=== PATIENT | female | born 1955 | race Caucasian/White ===

== ENCOUNTER 2018-10-04 00:50 | Inpatient (IN) | payer OTHER ==
[2018-10-04] MEDS ORDERED: SODIUM CHLORIDE 1,000 ML IV STA (01:13)
[2018-10-04] MEDS ORDERED: FAMOTIDINE 20 MG/50 ML IVPB 20 MG/50 ML MG IVPB ONE ×2 (01:13→03:24)
[2018-10-04] MEDS ORDERED: ONDANSETRON 4 MG/2 ML VIAL IVPUSH ONE (01:13)
--- NOTE | 2018-10-04 01:13 | PDOC ---
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 She states that she was outside in the heat today and feels like she might be dehydrated. She was feeling too nauseous earlier today that she was not able to take her standard seizure and psychiatric medications. She did not take her lithium or her lamictal. Despite feeling nauseous she has been drinking a ton of water per her and has been urinating non-stop with very clear urine. Patient denies having any chest pain, SOB, difficulty breathing, recent fevers, chills, infections, headache, abdominal pain, back pain, blurry vision, neck pain, weakness, numbness, tingling or chills. PCP: Ben De Leon PSH: Brain surgery Allergies: Carbamazepine, gabapentin, risperidone Social Hx: Patient denies smoking, drinking, or other substance usage. Past History - Past Medical History Allergies/Adverse Reactions: Allergies Allergy/AdvReac Type Severity Reaction Status Date / Time carbamazepine [From Tegretol] AdvReac Verified 10/04/18 01:13 gabapentin AdvReac Verified 10/04/18 01:12 risperidone [From Risperdal] AdvReac Verified 10/04/18 01:12 Home Medications: Ambulatory Orders Atorvastatin Calcium 20 mg PO DAILY 10/04/18 Clonazepam 0.5 mg PO TID 10/04/18 Clonazepam 1 mg PO DAILY 10/04/18 Labetalol HCl 100 mg PO DAILY 10/04/18 Lamotrigine 200 mg PO HS 10/04/18 [place] Carbonate [Eskalith -] 450 mg PO HS 10/04/18 Quetiapine Fumarate [Seroquel -] 25 mg PO HS 10/04/18 - Suicide/Smoking/Psychosocial Hx Smoking History: Unknown if ever smoked Review of Systems - Review of Systems Able to Perform ROS?: Yes Comments:: CONSTITUTIONAL: Absent: fever, no chills, no fatigue EYES: Absent: visual changes ENT: Absent: ear pain, no sore throat CARDIOVASCULAR: Absent: chest pain, no palpitations RESPIRATORY: Absent: cough, no SOB GI: Present: Nausea Absent: abdominal pain, no vomiting, no constipation, no diarrhea GENITOURINARY: Present: Polyuria Absent: dysuria, no frequency, no hematuria MUSKULOSKELETAL: Absent: back pain, no arthralgia, no myalgia SKIN: Absent: rash NEURO: Absent: headache *Physical Exam - Vital Signs Last Vital Signs Temp Pulse Resp BP Pulse Ox 18 L 17 175/86 H 97 10/04/18 01:09 10/04/18 01:09 10/04/18 01:09 10/04/18 01:09 - Physical Exam Comments: GENERAL: Well-appearing, well-nourished. No apparent distress. HEENT: Normocephalic, atraumatic. PERRL, EOM intact. CARDIOVASCULAR: Normal S1, S2. Regular rate and rhythm. PULMONARY: No evidence of respiratory distress. Lungs clear to auscultation bilaterally. No wheezing, rales or rhonchi. ABDOMEN: Soft, non-distended, non-tender. EXTREMITIES: Normal ROM in all four extremities. No gross deformities. SKIN: Warm, dry. No rash NEUROLOGICAL: No focal neurological deficits. PSYCHIATRIC: Cooperative. Good eye contact. Appropriate mood and affect. 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 She states that she was outside in the heat today and feels like she might be dehydrated. She was feeling too nauseous earlier today that she was not able to take her standard seizure and psychiatric medications. She did not take her lithium or her lamictal. Despite feeling nauseous she has been drinking a ton of water per her and has been urinating non-stop with very clear urine. Vital Signs Temp Pulse Resp BP Pulse Ox 18 L 17 175/86 H 97 10/04/18 01:09 10/04/18 01:09 10/04/18 01:09 10/04/18 01:09 DDx IBNLT: Psychogenic polydipsia, Viral gastroenteritis, electrolyte/metabolic disturbance, dehydration, Arrhythmia, UTI/Pylo Plan: Labs, Urine, EKG, IV hydration, analgesia, GI cocktail, re-assess. Labs: Mild leukocytosis w left shift, hyponatremia 128, elevated BUN 21.2 suggesting possible dehydration. Urine: Low specific gravity EKG: NS rate of 66, narrow complexes, normal axis, no hypertrophy, no ST elevations or depressions, TWI in lead 3, Q waves in lead 3 and aVF, NE - 198, QTc - 438 Re-assessment: Patient does not feel comfortable going home bc she has no AC. She still feels nauseous and requests to be admitted to the hospital bc she does not feel well Disposition: Admit to hospital for hyponatremia, elevated BUN, psychogenic polydipsia *DC/Admit/Observation/Transfer Diagnosis at time of Disposition: Neutrophilic leukocytosis, Hyponatremia, Elevated BUN, Nausea, Psychogenic polydipsia - Discharge Dispostion Condition at time of disposition: Stable Decision to Admit order: Yes - Referrals - Patient Instructions - Post Discharge Activity
[2018-10-04] MEDS ORDERED: ACETAMINOPHEN 325 MG TABLET (FP) PO ONE (01:15)
[2018-10-04] MEDS ORDERED: MAG HYDROX/AL HYDROX/SIMETH -MYLANTA- ORAL SUSPENSION PO ONE (01:15)
[2018-10-04] MEDS ORDERED: MAG HYDROX/AL HYDROX/SIMETH 30 ML UNIT-DOSE CUP ONE (01:21)
[2018-10-04] MEDS ORDERED: ACETAMINOPHEN 325 MG TABLET (FP) ONE (01:21)
[2018-10-04] MEDS ORDERED: ONDANSETRON 4 MG/2 ML VIAL ONE (01:21)
[2018-10-04 01:38] LABS: BASO % 0.5 % (0-2.0); EOS % 3.4 % (0-4.5); HEMATOCRIT 40.7 % (32.4-45.2); HEMOGLOBIN 14.5 GM/dL (10.7-15.3); LYMPH % 10.8 % (8-40); MCHC 35.6 g/dl (32.0-36.0); MEAN CELL VOLUME 89.9 fl (80-96); MEAN PLT VOLUME 8.3 fl (7.5-11.1); MONO % 5.6 % (3.8-10.2); NEUT % 79.7 % (42.8-82.8); PLATELET COUNT 178 K/MM3 (134-434); RBC 4.52 M/mm3 (3.60-5.2); RDW 12.4 % (11.6-15.6); WHITE BLOOD COUNT 10.4 K/mm3 (4.0-10.0)
[2018-10-04 01:48] LABS: PH,URINE 6.5 (5.0-8.0); URINE APPEARANCE CLEAR; URINE BILIRUBIN NEGATIVE (NEGATIVE); URINE COLOR YELLOW; URINE GLUCOSE (UA) NEGATIVE (NEGATIVE); URINE KETONE NEGATIVE (NEGATIVE); URINE LEUK ESTERASE NEGATIVE (NEGATIVE); URINE NITRITE NEGATIVE (NEGATIVE); URINE PROTEIN NEGATIVE (NEGATIVE); URINE UROBILINOGEN 0.2 mg/dL (0.2-1.0)
[2018-10-04 01:50] LABS: INR 1.02 (0.83-1.09)
[2018-10-04 01:53] LABS: MAGNESIUM 1.9 mg/dL (1.8-2.4)
--- NOTE | 2018-10-04 01:53 | PDOC ---
Attending Attestation - Resident Resident Name: Tk Montano - ED Attending Attestation I have performed the following: I have examined & evaluated the patient, The case was reviewed & discussed with the resident, I agree w/resident's findings & plan - HPI HPI: 10/04/18 03:07 Pt was sleeping/snoozing, then suddenly got up and told her that she needs to go to the ER because she "feels unwell" she is unable to specify what. Pt and tell us that they have no AC in the home, which may be causing unrest. Pt has no other complaints. She states that she has stress familial and due to her left knee injury 1 mos ago. She has postnasal drip due to allergies and states that she has belching due to allergies and stress. Pt is requesting xanax 1/2 pill for anxiety. She states that she is nauseous. States that she drinks a lot of water to stay cool. - Physicial Exam PE: 10/04/18 03:10 Agree with resident exam. Pt has a normal exam. Pt has fullness in her bilateral neck and collarbone area, that her tells me is normal for her. - Medical Decision Making 10/04/18 03:11 Pt has significant hyponatremia. She seems to be normovolemic. 10/04/18 05:05 Repeat Chem shows that the Na+ went from 128 to 130 and she is still hyponatremic. She will be admitted for hydration. She still feels unwell. She will be treated with antiemetics and more saline. She was signed out to the hospitalist team.
[2018-10-04 02:00] LABS: ALBUMIN 4.2 g/dl (3.4-5.0); BILIRUBIN,TOTAL 0.7 mg/dL (0.2-1); BLOOD UREA NITROGEN 21.2 mg/dL (7-18); CALCIUM 9.5 mg/dL (8.5-10.1); CREATININE 1.1 mg/dL (0.55-1.3); POTASSIUM 3.6 mmol/L (3.5-5.1); TOT PROT 6.7 g/dl (6.4-8.2)
[2018-10-04] MEDS ORDERED: LORazepam 1 MG TABLET PO ONE (03:05)
[2018-10-04] MEDS ORDERED: LORazepam 0.5 MG TABLET ONE (03:24)
[2018-10-04 04:10] LABS: BLOOD UREA NITROGEN 20.3 mg/dL (7-18); CALCIUM 8.5 mg/dL (8.5-10.1); POTASSIUM 3.6 mmol/L (3.5-5.1)
[2018-10-04] MEDS ORDERED: METOCLOPRAMIDE HCL INJECTION 10 MG/2 ML VIAL IVPUSH ONE (04:30)
[2018-10-04] MEDS ORDERED: METOCLOPRAMIDE HCL INJECTION 10 MG/2 ML VIAL ONE (04:32)
--- NOTE | 2018-10-04 05:06 | PN ---
Teaching Attending Note Name of Resident: Sarthak Dumont ATTENDING PHYSICIAN STATEMENT I saw and evaluated the patient. I reviewed the resident's note and discussed the case with the resident. I agree with the resident's findings and plan as documented. 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 She states that she was outside in the heat today and feels like she might be dehydrated. She was feeling too nauseous earlier today that she was not able to take her standard seizure and psychiatric medications. She did not take her lithium or her lamictal. Despite feeling nauseous she has been drinking a ton of water ( over 8 bottles) per her and has been urinating non-stop with very clear urine. Patient and also stated that they have no Air conditioner in the home and were also hot inside the house. Patient denies having any chest pain, SOB, difficulty breathing, recent fevers, chills, infections, headache, abdominal pain, back pain, blurry vision, neck pain, weakness, numbness, tingling or chills. OBJECTIVE: Alert Vital Signs Period Temp Pulse Resp BP Sys/Gonzalez Pulse Ox Last 24 Hr 18-70 17-18 128-175/71-86 97-100 HEENT: No Jaundice, eye redness or discharge, PERRLA, EOMI. Normocephalic, atraumatic. External ears are normal and hearing is grossly intact. No nasal discharge. Neck: Supple, nontender. No palpable adenopathy or thyromegaly. No JVD Chest: Good effort. Clear to auscultation and percussion. Heart: Regular. No S3, rub or murmur Abdomen: Not distended, soft, mild epigastric tenderness and no HSM. No rebound or guarding. Normal bowel sounds. Ext: Peripheral pulses intact. No leg edema. Skin: Warm and dry. No petechiae, rash or ecchymosis. Neuro: Alert. Oriented x3. Anxious. CN 2-12 grossly intact. Sensation grossly intact in all four extremities and DTR are symmetric. Psych: Appropriate mood and affect. Good insight. Home Medications Medication Instructions Recorded Atorvastatin Calcium 20 mg PO DAILY 10/04/18 Clonazepam 0.5 mg PO TID 10/04/18 Clonazepam 1 mg PO DAILY 10/04/18 Labetalol HCl 100 mg PO DAILY 10/04/18 Lamotrigine 200 mg PO HS 10/04/18 [place] Carbonate [Eskalith -] 450 mg PO HS 10/04/18 Quetiapine Fumarate [Seroquel -] 25 mg PO HS 10/04/18 Abnormal Lab Results 10/04/18 10/04/18 10/04/18 01:27 01:27 01:27 WBC 10.4 H Absolute Neuts (auto) 8.3 H Sodium 128 L Chloride 95 L Anion Gap 7 L BUN 21.2 H Ur Specific [place] 1.003 L Carbamazepine 10/04/18 10/04/18 01:27 03:15 WBC Absolute Neuts (auto) Sodium 130 L Chloride Anion Gap BUN 20.3 H Ur Specific [place] Carbamazepine < 0.5 L ASSESSMENT AND PLAN: 1. Heat stroke/Hyponatremia - Heat stroke may have led to the persistent nausea and excessive free water intake over a short period of time led to hyponatremia - likely exacerbated in the setting of lithium-induced sodium depletion. She got I liter IV NS in the ER and serum sodium is now 130 meq/L. Will restrict free water intake and withhold further IV fluids for now, pending repeat serum sodium level in 4 hours. Get upper abdominal sonogram and continue IV zofran PRN for nausea. Consult nephrology. EKG is NSR with no significant ST-T wave changes. 2. DVT prophylaxis - Lovenox 40 mg SQ q 24 hours. 3. Advance directives - Full code
[2018-10-04] MEDS ORDERED: ONDANSETRON 4 MG/2 ML VIAL IVPUSH PRN (05:17)
--- NOTE | 2018-10-04 05:29 | HP ---
CHIEF COMPLAINT: nausea PCP:Ben De Leon HISTORY OF PRESENT ILLNESS: Patient is a 63 y/o female with a psych history, CVA, and Brain AVM who presented for nausea. This began today. patient also was very hot today and drank around 7 water bottles which is more then she usually drinks. She did not eat anything out of the abnormality. Her does not have similar symptoms. Because of the nausea she missed her recent lamictal and lithium medications. Patient has not vomitted recently, denies any diarrhea. States she is not feeling better. Patient denies headache, chest pain, shortness of breath , or dizziness. Patient follows with a neurologist for her hx of Brain AVM and had recent MRI/MRA and was told there is a small aneurysm still but they are just watching it. ER course was notable for: (1) zofran, metoclopramide, famotidine, [place], NS (2) (3) Recent Travel: PAST MEDICAL HISTORY: psych, CVA, brain AVM PAST SURGICAL HISTORY: brain surgery ( 5 years ago) Social History: Smoking: denies Alcohol: glass of wine a day Drugs: denies Family History: Allergies carbamazepine [From Tegretol] Adverse Reaction (Verified 10/04/18 01:13) gabapentin Adverse Reaction (Verified 10/04/18 01:12) risperidone [From Risperdal] Adverse Reaction (Verified 10/04/18 01:12) HOME MEDICATIONS: Home Medications Medication Instructions Recorded Atorvastatin Calcium 20 mg PO DAILY 10/04/18 Clonazepam 0.5 mg PO TID 10/04/18 Clonazepam 1 mg PO DAILY 10/04/18 Labetalol HCl 100 mg PO DAILY 10/04/18 Lamotrigine 200 mg PO HS 10/04/18 [place] Carbonate [Eskalith -] 450 mg PO HS 10/04/18 Quetiapine Fumarate [Seroquel -] 25 mg PO HS 10/04/18 REVIEW OF SYSTEMS CONSTITUTIONAL: Absent: fever, chills, diaphoresis, generalized weakness, malaise, loss of appetite, weight change HEENT: Absent: rhinorrhea, nasal congestion, throat pain, throat swelling, difficulty swallowing, mouth swelling, ear pain, eye pain, visual changes CARDIOVASCULAR: Absent: chest pain, syncope, palpitations, irregular heart rate, lightheadedness , peripheral edema RESPIRATORY: Absent: cough, shortness of breath, dyspnea with exertion, orthopnea, wheezing, stridor, hemoptysis GASTROINTESTINAL:nausea, Absent: abdominal pain, abdominal distension, vomiting, diarrhea, constipation , melena, hematochezia GENITOURINARY: Absent: dysuria, frequency, urgency, hesitancy, hematuria, flank pain, genital pain MUSCULOSKELETAL: Absent: myalgia, arthralgia, joint swelling, back pain, neck pain SKIN: Absent: rash, itching, pallor HEMATOLOGIC/IMMUNOLOGIC: Absent: easy bleeding, easy bruising, lymphadenopathy, frequent infections ENDOCRINE: Absent: unexplained weight gain, unexplained weight loss, heat intolerance, cold intolerance NEUROLOGIC: Absent: headache, focal weakness or paresthesias, dizziness, unsteady gait, seizure, mental status changes, bladder or bowel incontinence PSYCHIATRIC: Absent: anxiety, depression, suicidal or homicidal ideation, hallucinations. PHYSICAL EXAMINATION Vital Signs - 24 hr 10/04/18 10/04/18 10/04/18 01:09 03:31 04:39 Pulse Rate 18 L Pulse Rate [ 70 62 Radial] Respiratory 17 18 Rate Blood Pressure 175/86 H Blood Pressure 142/83 128/71 [Right Arm] O2 Sat by Pulse 97 100 100 Oximetry (%) GENERAL: Awake, alert, and fully oriented, in no acute distress. HEAD: Normal with no signs of trauma. LUNGS: Breath sounds equal, clear to auscultation bilaterally. No wheezes, and no crackles. No accessory muscle use. HEART: Regular rate and rhythm, normal S1 and S2 without murmur, rub or gallop. ABDOMEN:mild mid epigastric tenderness, soft, non distended MUSCULOSKELETAL: Normal range of motion at all joints. No bony deformities or tenderness. LOWER EXTREMITIES: 2+ pulses, warm, well-perfused. No calf tenderness. No peripheral edema. NEUROLOGICAL: Normal speech. SKIN: Warm, dry, normal turgor, no rashes or lesions noted, normal capillary refill. CBC, BMP 10/04/18 01:27 10/04/18 03:15 ASSESSMENT/PLAN: Patient is a 63 y/o female with a psych history, CVA, and Brain AVM who is admitted for hyponatremia. #hyponatremia - 2/2 to pysocgenic polydipsia - NA improving on repeat CMP 128> 130 - fluid restriction of 1 L - continue to monitor, watch mental status - EKG: no st elevations or t wave abnormalities #nausea - 2/2 to hyponatremia, vs unknown cause - continue zofran 4 q6h - QTC 428 - monitor, continued vomiting could lead to worsening hyponatremia - Abd US ordered mid epigastric tenderness, CT abd in day time if indicated #brain AVM - follows with Dr. Axel Tang at [facility] - per patient recent MRI/MRA without any acute changes #HLD - continue atorvastatin 20 #psych hx - will continue home meds, lamotrigine, lithimum, queitiapine, clonazepam DVT ppx - Lovenox 40 sq FEN - low sodium diet Dispo: monitor on med surg, medications reconciled by ED nurse from husbands home list Visit type - Emergency Visit Emergency Visit: Yes ED Registration Date: 10/04/18 Care time: The patient presented to the Emergency Department on the above date and was hospitalized for further evaluation of their emergent condition. - New Patient This patient is new to me today: Yes Date on this admission: 10/04/18 - Critical Care Critical Care patient: No ATTENDING PHYSICIAN STATEMENT I saw and evaluated the patient. I reviewed the resident's note and discussed the case with the resident. I agree with the resident's findings and plan as documented. SUBJECTIVE: OBJECTIVE: ASSESSMENT AND PLAN:
[2018-10-04] MEDS ORDERED: PATIENT'S OWN MEDICATION (NON-FORMULARY) (Clonazepam [Clonazepam] 1 MG) PO SCH (10:00)
[2018-10-04] MEDS: LABETALOL HCL 100 MG TABLET (FP) PO SCH (10:25)
[2018-10-04] MEDS: ENOXAPARIN NA (PORCINE) 40 MG/0.4 ML DISP.SYRIN SQ SCH (10:25)
[2018-10-04] MEDS ORDERED: PATIENT'S OWN MEDICATION (NON-FORMULARY) (Clonazepam [Clonazepam] 0.5 MG) PO SCH (14:00)
[2018-10-04] MEDS ORDERED: LORATADINE 10 MG TABLET PO ONE (14:38)
[2018-10-04] MEDS: clonazePAM 0.5 MG TABLET PO SCH ×2 (14:40→23:03)
[2018-10-04] MEDS ORDERED: clonazePAM 0.5 MG TABLET ONE (14:40)
[2018-10-04] MEDS ORDERED: LORATADINE 10 MG TABLET ONE (14:41)
--- NOTE | 2018-10-04 14:54 | HOSP ---
Subjective - Review of Symptoms Events since last encounter: Patient is feeling better. patient is hyponatremic 128-->130 now, ordered urine osm. and urine sodium ordered. follow the labs. CMP , mag and phos. ordered home clonipin and lithium. Vital Signs Temperature Pulse Rate 67 10/04/18 08:37 Respiratory Rate 17 10/04/18 08:37 Blood Pressure 126/66 10/04/18 08:37 O2 Sat by Pulse Oximetry (%) 97 10/04/18 08:37 CBCD WBC 10.4 K/mm3 (4.0-10.0) H 10/04/18 01:27 RBC 4.52 M/mm3 (3.60-5.2) 10/04/18 01:27 Hgb 14.5 GM/dL (10.7-15.3) 10/04/18 01:27 Hct 40.7 % (32.4-45.2) 10/04/18 01:27 MCV 89.9 fl (80-96) 10/04/18 01:27 MCHC 35.6 g/dl (32.0-36.0) 10/04/18 01:27 RDW 12.4 % (11.6-15.6) 10/04/18 01:27 Plt Count 178 K/MM3 (134-434) 10/04/18 01:27 MPV 8.3 fl (7.5-11.1) 10/04/18 01:27 CMP Sodium 130 mmol/L (136-145) L 10/04/18 03:15 Potassium 3.6 mmol/L (3.5-5.1) 10/04/18 03:15 Chloride 99 mmol/L (98-107) 10/04/18 03:15 Carbon Dioxide 23 mmol/L (21-32) 10/04/18 03:15 Anion Gap 8 MMOL/L (8-16) 10/04/18 03:15 BUN 20.3 mg/dL (7-18) H 10/04/18 03:15 Creatinine 1.0 mg/dL (0.55-1.3) 10/04/18 03:15 Random Glucose 92 mg/dL (74-106) 10/04/18 03:15 Calcium 8.5 mg/dL (8.5-10.1) 10/04/18 03:15 Total Bilirubin 0.7 mg/dL (0.2-1) 10/04/18 01:27 AST 19 U/L (15-37) 10/04/18 01:27 ALT 23 U/L (13-61) 10/04/18 01:27 Alkaline Phosphatase 62 U/L (45-117) 10/04/18 01:27 Total Protein 6.7 g/dl (6.4-8.2) 10/04/18 01:27 Albumin 4.2 g/dl (3.4-5.0) 10/04/18 01:27 Current Medications Generic Name Dose Route Start Last Admin Trade Name Freq PRN Reason Stop Dose Admin Atorvastatin Calcium 20 mg 10/04/18 22:00 Lipitor - PO HS ANTONY Clonazepam 0.5 mg 10/04/18 14:31 Klonopin - PO TID ANTONY Clonazepam 1 mg 10/04/18 22:00 Klonopin - PO HS PRN AGITATION Enoxaparin Sodium 40 mg 10/04/18 10:00 10/04/18 10:25 Lovenox - SQ 40 mg DAILY ANTONY Administration Labetalol HCl 100 mg 10/04/18 10:00 10/04/18 10:25 Normodyne - PO 100 mg DAILY ANTONY Administration Lamotrigine 200 mg 10/04/18 22:00 Lamictal - PO HS [facility] [place] Carbonate 450 mg 10/04/18 22:00 Eskalith - PO HS [facility] Ondansetron HCl 4 mg 10/04/18 05:17 Zofran Injection IVPUSH Q6H PRN NAUSEA Quetiapine Fumarate 25 mg 10/04/18 22:00 Seroquel - PO HS [facility] Home Medications Medication Instructions Recorded Atorvastatin Calcium 20 mg PO DAILY 10/04/18 Clonazepam 0.5 mg PO TID 10/04/18 Clonazepam 1 mg PO DAILY 10/04/18 Labetalol HCl 100 mg PO DAILY 10/04/18 Lamotrigine 200 mg PO HS 10/04/18 [place] Carbonate [Eskalith -] 450 mg PO HS 10/04/18 Quetiapine Fumarate [Seroquel -] 25 mg PO HS 10/04/18 Physical Examination Vital Signs: Vital Signs Temperature Pulse Rate 67 10/04/18 08:37 Respiratory Rate 17 10/04/18 08:37 Blood Pressure 126/66 10/04/18 08:37 O2 Sat by Pulse Oximetry (%) 97 10/04/18 08:37 Labs: CBC, BMP 10/04/18 01:27 10/04/18 03:15
[2018-10-04 18:09] VITALS: BMI 26.2
[2018-10-04] MEDS ORDERED: PT OWN MED DRAWER 7, Y5N ONE (21:20)
[2018-10-04] MEDS ORDERED: clonazePAM 0.5 MG TABLET PO PRN (22:00)
[2018-10-04] MEDS ORDERED: QUEtiapine FUMARATE 25 MG TABLET (FP) PO SCH (22:00)
[2018-10-04] MEDS ORDERED: ATORVASTATIN CA 20 MG TABLET (FP) PO SCH (22:00)
[2018-10-04] MEDS ORDERED: LITHIUM CARBONATE 450 MG TABLET.ER PO SCH (22:00)
--- NOTE | 2018-10-05 00:02 | EKG ---
Test Reason : Blood Pressure : / mmHG Vent. Rate : 066 BPM Atrial Rate : 066 BPM P-R Int : 198 ms QRS Dur : 088 ms QT Int : 418 ms P-R-T Axes : 029 -24 035 degrees QTc Int : 438 ms NORMAL SINUS RHYTHM INFERIOR INFARCT , AGE UNDETERMINED ANTERIOR INFARCT , AGE UNDETERMINED ABNORMAL ECG NO PREVIOUS ECGS AVAILABLE Confirmed by DELTA TOLEDO MD ([id number]) on 10/05/2018 12:01:50 AM Referred By: JOLEEN Confirmed By:DELTA TOLEDO MD
[2018-10-05] MEDS: clonazePAM 0.5 MG TABLET PO SCH ×2 (06:24→14:50)
[2018-10-05 09:08] LABS: ALBUMIN 3.8 g/dl (3.4-5.0); BILIRUBIN,TOTAL 0.4 mg/dL (0.2-1); BLOOD UREA NITROGEN 16.8 mg/dL (7-18); CALCIUM 9.9 mg/dL (8.5-10.1); CREATININE 1.2 mg/dL (0.55-1.3); MAGNESIUM 2.8 mg/dL (1.8-2.4); PHOSPHOROUS 3.3 mg/dL (2.5-4.9); POTASSIUM 4.2 mmol/L (3.5-5.1)
[2018-10-05 09:26] LABS: BASO % 0.6 % (0-2.0); EOS % 3.4 % (0-4.5); HEMATOCRIT 37.5 % (32.4-45.2); HEMOGLOBIN 13.1 GM/dL (10.7-15.3); MCH 32.3 pg (25.7-33.7); MCHC 34.9 g/dl (32.0-36.0); MEAN CELL VOLUME 92.5 fl (80-96); MEAN PLT VOLUME 9.1 fl (7.5-11.1); MONO % 6.9 % (3.8-10.2); NEUT % 74.1 % (42.8-82.8); PLATELET COUNT 165 K/MM3 (134-434); RBC 4.05 M/mm3 (3.60-5.2); RDW 12.5 % (11.6-15.6); WHITE BLOOD COUNT 5.4 K/mm3 (4.0-10.0)
[2018-10-05] MEDS ORDERED: DEXTROSE 5%-WATER - 1,000 ML IV SCH (10:00)
[2018-10-05] MEDS: LABETALOL HCL 100 MG TABLET (FP) PO SCH (10:32)
[2018-10-05] MEDS: ENOXAPARIN NA (PORCINE) 40 MG/0.4 ML DISP.SYRIN SQ SCH (10:32)
--- NOTE | 2018-10-05 14:53 | PN ---
Teaching Attending Note Name of Resident: Emily Wu ATTENDING PHYSICIAN STATEMENT I saw and evaluated the patient. I reviewed the resident's note and discussed the case with the resident. I agree with the resident's findings and plan as documented. SUBJECTIVE: Patient is feeling better , at bed side. OBJECTIVE: Vital Signs Temperature 98.8 F 10/05/18 12:28 Pulse Rate 80 10/05/18 12:28 Respiratory Rate 18 10/05/18 12:28 Blood Pressure 152/83 10/05/18 12:28 O2 Sat by Pulse Oximetry (%) 96 10/05/18 09:00 GENERAL: The patient is awake, alert, and fully oriented, in no acute distress. HEAD: Normal with no signs of trauma. EYES: PERRL, extraocular movements intact, sclera anicteric, conjunctiva clear. ENT: Ears normal, oropharynx clear without exudates, moist mucous membranes. NECK: Trachea midline, full range of motion, supple. LUNGS: Breath sounds equal, clear to auscultation bilaterally, no wheezes, no crackles, no accessory muscle use. HEART: Regular rate and rhythm, S1, S2 without murmur, rub or gallop. ABDOMEN: Soft, nontender, nondistended, normoactive bowel sounds, no guarding, no rebound, no hepatosplenomegaly, no masses. EXTREMITIES: 2+ pulses, warm, well-perfused, no edema. NEUROLOGICAL: Cranial nerves II through XII grossly intact. Normal speech, gait not observed. PSYCH: Normal mood, normal affect. SKIN: Warm, dry, normal turgor, no rashes or lesions noted. CBCD WBC 5.4 K/mm3 (4.0-10.0) 10/05/18 07:51 RBC 4.05 M/mm3 (3.60-5.2) 10/05/18 07:51 Hgb 13.1 GM/dL (10.7-15.3) 10/05/18 07:51 Hct 37.5 % (32.4-45.2) 10/05/18 07:51 MCV 92.5 fl (80-96) 10/05/18 07:51 MCHC 34.9 g/dl (32.0-36.0) 10/05/18 07:51 RDW 12.5 % (11.6-15.6) 10/05/18 07:51 Plt Count 165 K/MM3 (134-434) 10/05/18 07:51 MPV 9.1 fl (7.5-11.1) 10/05/18 07:51 CMP Sodium 147 mmol/L (136-145) H 10/05/18 07:51 Potassium 4.2 mmol/L (3.5-5.1) 10/05/18 07:51 Chloride 118 mmol/L (98-107) H 10/05/18 07:51 Carbon Dioxide 24 mmol/L (21-32) 10/05/18 07:51 Anion Gap 5 MMOL/L (8-16) L 10/05/18 07:51 BUN 16.8 mg/dL (7-18) 10/05/18 07:51 Creatinine 1.2 mg/dL (0.55-1.3) 10/05/18 07:51 Random Glucose 130 mg/dL (74-106) H 10/05/18 07:51 Calcium 9.9 mg/dL (8.5-10.1) 10/05/18 07:51 Total Bilirubin 0.4 mg/dL (0.2-1) 10/05/18 07:51 AST 10 U/L (15-37) L 10/05/18 07:51 ALT 20 U/L (13-61) 10/05/18 07:51 Alkaline Phosphatase 52 U/L (45-117) 10/05/18 07:51 Total Protein 6.0 g/dl (6.4-8.2) L 10/05/18 07:51 Albumin 3.8 g/dl (3.4-5.0) 10/05/18 07:51 Home Medications Medication Instructions Recorded Atorvastatin Calcium 20 mg PO DAILY 10/04/18 Fluticasone Prop 0.05% Nasal 1 - 2 spray NS DAILY 10/04/18 [Flonase -] Loratadine [Allergy Relief] 10 mg PO PRN 10/04/18 Labetalol HCl [Normodyne -] 100 mg PO DAILY tablet 10/05/18 Lamotrigine [Lamictal -] 200 mg PO HS tablet 10/05/18 [place] Carbonate [Eskalith -] 450 mg PO HS tablet.er 10/05/18 Quetiapine Fumarate [Seroquel -] 25 mg PO HS tablet 10/05/18 clonazePAM [Klonopin -] 0.5 mg PO TID tablet MDD 2 10/05/18 clonazePAM [Klonopin -] 1 mg PO HS PRN tablet MDD 2 10/05/18 Current Medications Generic Name Dose Route Start Last Admin Trade Name Freq PRN Reason Stop Dose Admin Atorvastatin Calcium 20 mg 10/04/18 22:00 10/04/18 23:02 Lipitor - PO 20 mg HS ANTONY Administration Clonazepam 0.5 mg 10/04/18 14:31 10/05/18 14:50 Klonopin - PO 0.5 mg TID ANTONY Administration Clonazepam 1 mg 10/04/18 22:00 Klonopin - PO HS PRN AGITATION Enoxaparin Sodium 40 mg 10/04/18 10:00 10/05/18 10:32 Lovenox - SQ 40 mg DAILY ANTONY Administration Labetalol HCl 100 mg 10/04/18 10:00 10/05/18 10:32 Normodyne - PO 100 mg DAILY ANTONY Administration Lamotrigine 200 mg 10/04/18 22:00 10/04/18 23:22 Lamictal - PO 200 mg HS ANTONY Administration [place] Carbonate 450 mg 10/05/18 22:00 Eskalith - PO HS ANTONY Ondansetron HCl 4 mg 10/04/18 05:17 Zofran Injection IVPUSH Q6H PRN NAUSEA Quetiapine Fumarate 25 mg 10/04/18 22:00 10/04/18 23:02 Seroquel - PO 25 mg HS ANTONY Administration ASSESSMENT AND PLAN: Patient is a 63 y/o female with a psych history, CVA, and Brain AVM who is admitted for acute hyponatremia. #acute hyponatremia due to pysocgenic polydipsia, as per patient bc it is very heating engineer the house due to heat, patient was drinking lots of water, around 2 gallons as per patient. presneted with 128--> 147 today on fluid restriction. suggested to the patient to drink only 2 liters per day and follow up with the primary to repeat the level of her sodium closely . # Acute nausea improved #brain AVM: patient follows with Dr. Axel Tang at [facility]; per patient recent MRI/MRA without any acute changes #HLD continue atorvastatin 20 #psych hx : will continue home meds, lamotrigine, lithimum, queitiapine, clonazepam discharge patient home with her
--- NOTE | 2018-10-05 17:25 | DS ---
Physical Exam: SUBJECTIVE: Patient seen and examined. No acute events overnight. OBJECTIVE: Vital Signs Period Temp Pulse Resp BP Sys/Gonzalez Pulse Ox Last 24 Hr 98.0 F-98.8 F 71-80 18-18 134-152/65-83 96-98 PHYSICAL EXAM GENERAL: The patient is awake, alert, and fully oriented, in no acute distress. HEAD: Normal with no signs of trauma. EYES: PERRL, extraocular movements intact, sclera anicteric, conjunctiva clear. ENT: Ears normal, nares patent, oropharynx clear without exudates, moist mucous membranes. NECK: Trachea midline, full range of motion, supple. LUNGS: Breath sounds equal, clear to auscultation bilaterally, no wheezes, no crackles, no accessory muscle use. HEART: Regular rate and rhythm, S1, S2 without murmur, rub or gallop. ABDOMEN: Soft, nontender, nondistended, normoactive bowel sounds, no guarding, no rebound, no hepatosplenomegaly, no masses. EXTREMITIES: 2+ pulses, warm, well-perfused, no edema. NEUROLOGICAL: Cranial nerves II through XII grossly intact. Normal speech, gait not observed. PSYCH: Normal mood, normal affect. SKIN: Warm, dry, normal turgor, no rashes or lesions noted. LABS Laboratory Results - last 24 hr 10/04/18 10/05/18 10/05/18 03:15 07:51 07:51 WBC 5.4 RBC 4.05 Hgb 13.1 Hct 37.5 MCV 92.5 MCH 32.3 MCHC 34.9 RDW 12.5 Plt Count 165 MPV 9.1 Absolute Neuts (auto) 4.0 Neutrophils % 74.1 Lymphocytes % 15.0 D Monocytes % 6.9 Eosinophils % 3.4 Basophils % 0.6 Nucleated RBC % 0 Sodium 147 H Potassium 4.2 Chloride 118 H Carbon Dioxide 24 Anion Gap 5 L BUN 16.8 Creatinine 1.2 Est GFR (CKD-EPI)AfAm 54.92 Est GFR (CKD-EPI)NonAf 47.39 Random Glucose 130 H Serum Osmolality 305 Calcium 9.9 Phosphorus 3.3 Magnesium 2.8 H Total Bilirubin 0.4 AST 10 L ALT 20 Alkaline Phosphatase 52 Total Protein 6.0 L Albumin 3.8 [place] 0.4 L HOSPITAL COURSE: Date of Admission:10/04/18 Patient is a 63 year old female with a psych history, CVA, and Brain AVM who was admitted for hyponatremia (128) 2/2 psychogenic polydipsia. She was treated with IVF NS @ 1,000 ml/hr. Sodium corrected to 130, then 147. Pt complained of nausea and mid epigastric tenderness on admission and was treated with Zofran, symptoms improved. Pt's vitals and labs are stable, she is clinically improved with no active complaints or pain, and is stable to be discharged. It was recommended on discharge that pt restrict fluid intake to 2L daily. EKG: No ST elevations or T wave abnormalities Abd US: no acute pathology Date of Discharge: 10/05/18 Minutes to complete discharge: 45 Discharge Summary Reason For Visit: NEUTROPHILIA/HYPONATREMIA/BLOOD UREA ABNORMAL Current Active Problems Nausea (Acute) Psychogenic polydipsia (Acute) - Instructions Diet, Activity, Other Instructions: You were admitted to the hospital for low sodium levels. We treated you with IV fluids and your sodium levels resolved. You have no symptoms at this time and are stable to be discharged home. Please limit water intake to 2 Liters (6 water bottles) a day. You should resume all home medications as prescribed. You should follow up with your primary care provider in one week. Return to the emergency department if you experience nausea, vomiting, pain or worsening of any symptoms. Referrals: Ben De Leon [Primary Care Provider] - 1 Week Disposition: HOME - Home Medications Comprehensive Discharge Medication List: Ambulatory Orders Atorvastatin Calcium 20 mg PO DAILY 10/04/18 Fluticasone Prop 0.05% Nasal [Flonase -] 1 - 2 spray NS DAILY 10/04/18 Loratadine [Allergy Relief] 10 mg PO PRN 10/04/18 Labetalol HCl [Normodyne -] 100 mg PO DAILY tablet 10/05/18 Lamotrigine [Lamictal -] 200 mg PO HS tablet 10/05/18 [place] Carbonate [Eskalith -] 450 mg PO HS tablet.er 10/05/18 Quetiapine Fumarate [Seroquel -] 25 mg PO HS tablet 10/05/18 clonazePAM [Klonopin -] 0.5 mg PO TID tablet MDD 2 10/05/18 clonazePAM [Klonopin -] 1 mg PO HS PRN tablet MDD 2 10/05/18 This patient is new to me today: Yes Date on this admission: 10/05/18 Emergency Visit: No Critical Care patient: No - Discharge Referral Referred to [facility] Med [facility] No ATTENDING PHYSICIAN STATEMENT I saw and evaluated the patient. I reviewed the resident's note and discussed the case with the resident. I agree with the resident's findings and plan as documented. SUBJECTIVE: OBJECTIVE: ASSESSMENT AND PLAN:
[2018-10-05 18:53] VITALS: BP 159/87; PULSE 69; TEMP 97.8
[2018-10-05] MEDS ORDERED: LITHIUM CARBONATE 450 MG TABLET.ER PO SCH (22:00)
== END 2018-10-05 20:14 | disposition home or self-care (01) | DRG 923 ==
LOC: JER 00:50 → JERBED 04:55 → J5S 18:05
PROVIDERS: ADMIT Internal Medicine; ATTEND Internal Medicine
DX: T67.0XXA Heatstroke and sunstroke, initial encounter (principal); E87.1 Hypo-osmolality and hyponatremia; R11.0 Nausea; Z86.73 Personal history of transient ischemic attack (TIA), and cerebral infarction without residual deficits; R63.1 Polydipsia; E86.0 Dehydration; D72.828 Other elevated white blood cell count; X30.XXXA Exposure to excessive natural heat, initial encounter; Y93.89 Activity, other specified; Y92.89 Other specified places as the place of occurrence of the external cause; Y99.8 Other external cause status
CPT/HCPCS: 36415; 76705-TC; 80048; 80053; 80156; 80178; 81003; 82150; 83690; 83735; 83930; 83935; 84100; 84300; 84443; 85025; 85610; 87077; 87086; 93005; 93010; 99285-25; J7030